=== PATIENT | female | born 2000 | race Caucasian/White ===

== ENCOUNTER 2024-03-24 07:11 | Outpatient (CLI) | payer MEDICAID, SELFPAY ==
--- NOTE | 2024-03-24 07:15 | CRLHL7_ITS ---
For Patients: As a result of the Cures Act, medical imaging exams and procedure reports are released immediately into your electronic medical record. You may view this report before your referring provider. If you have questions, please contact your health care provider. INDICATION: Dating and viability COMPARISON: None. TECHNIQUE: Real-time suh-scale imaging of the pelvis was performed. FINDINGS: Single living intrauterine with heart rate 149 beats per minute. Anterior placenta. Vertex position. Sonographic gestational age 15 weeks 6 days and sonographic due date 09/09/2024. IMPRESSION: Single living intrauterine with sonographic gestational age 15 weeks 6 days and sonographic due date 09/09/2024. Dictated by Osiel Vasquez MD @ 03/25/2024 9:57:11 AM (Electronically Signed)
== END 2024-03-24 07:12 | disposition home or self-care (01) ==
LOC: US 07:12
PROVIDERS: Visit Provider Advanced Practice Midwife
DX: Z34.92 Encounter for supervision of normal pregnancy, unspecified, second trimester (principal); Z3A.15 15 weeks gestation of pregnancy
CPT/HCPCS: 76815; 80306; 86703; 86706; 86803; 86850; 86900; 86901; 87086; 87340; 87491; 87591

== ENCOUNTER 2024-03-24 09:11 | Outpatient (CLI) | payer MEDICAID, SELFPAY | END 2024-03-24 09:12 | disposition home or self-care (01) | LOC: NFLDREF 09:12 | PROVIDERS: Visit Provider Advanced Practice Midwife | DX: Z34.82 Encounter for supervision of other normal pregnancy, second trimester (principal) | CPT/HCPCS: 80306; 86592; 86703; 86704; 86706; 86762; 86787; 86803; 86850; 86900; 86901; 87086; 87340; 87491; 87591 ==

== ENCOUNTER 2024-03-26 10:02 | Outpatient (CLI) | payer MEDICAID, SELFPAY ==
--- NOTE | 2024-03-26 10:15 | CRLHL7_ITS ---
For Patients: As a result of the Century Cures Act, medical imaging exams and procedure reports are released immediately into your electronic medical record. You may view this report before your referring provider. If you have questions, please contact your health care provider. BILATERAL BREAST ULTRASOUND CLINICAL HISTORY: Bilateral breast lumps. COMPARISON: None. TECHNIQUE: Real-time ultrasound imaging of bilateral breast with imaging documentation. FINDINGS: Targeted sonogram performed in the areas of concern bilaterally including 12 o`clock 6 cm from the nipple RIGHT breast and 12 o`clock 6 cm from the nipple LEFT breast. Normal dense fibroglandular tissue is present. No suspicious mass or fibrocystic change. IMPRESSION: Normal dense tissue bilaterally. No suspicious findings. RECOMMENDATIONS: Clinical follow-up. Results and recommendations were discussed with the patient. BI-RADS Category 1: Negative A lay language report of this examination will be provided to the patient. Dictated by Osiel Vasquez MD @ 03/26/2024 1:46:25 PM jj/Dictated by: Osiel Vasquez MD @ 03/26/2024 1:46:00 PM (Electronically Signed)
== END 2024-03-26 10:03 | disposition home or self-care (01) ==
PROVIDERS: Visit Provider Advanced Practice Midwife
DX: N63.10 Unspecified lump in the right breast, unspecified quadrant (principal); N63.20 Unspecified lump in the left breast, unspecified quadrant
CPT/HCPCS: 76642

== ENCOUNTER 2024-04-21 08:03 | Outpatient (CLI) | payer MEDICAID, SELFPAY ==
--- NOTE | 2024-04-21 08:45 | CRLHL7_ITS ---
For Patients: As a result of the Century Cures Act, medical imaging exams and procedure reports are released immediately into your electronic medical record. You may view this report before your referring provider. If you have questions, please contact your health care provider. INDICATION: Evaluate anatomy. COMPARISON: 03/24/2024 TECHNIQUE: Real time suh scale imaging of the fetus was performed as well as color Doppler analysis of the umbilical vessels. FINDINGS: Sonographic imaging demonstrates a single living intrauterine gestation. Fetus demonstrates a regular cardiac rate of 155 beats per minute. Fetus has a breech position. The placenta lies anteriorly without evidence of placenta previa. Edge of the placenta is located 4.1 cm from the internal cervical os. Amniotic fluid volume appears normal. Single deepest vertical pocket: 4.8 cm. The cervix is closed and measures 3.6 cm in length. The composite ultrasound gestational age is calculated at 19 weeks 2 days with an estimated sonographic due date of 09/13/2024. The estimated weight is 295 grams which lies at the 20th %. The following biometric measurements were obtained: Biparietal diameter: 4.2 cm/18 weeks 5 day 8th% Head circumference: 16.7 cm/19 weeks 2 day 16th% Abdominal circumference: 14.3 cm/19 weeks 5 days 33rd% Femur length: 3.0 cm/19 weeks 3 days 21st% The HC/AC ratio measures: 1.16 range (1.09-1.26) On anatomic survey, there is a normal appearance of the cerebral ventricles, cavum septi pellucidi, cisterna magna and cerebellum. The nose, lips, and facial profile appear normal. The cervical, thoracic and lumbar spine are well visualized and appear normal. There is a normal four-chamber heart view and the left and right ventricular outflow tracts appear normal. The diaphragm and stomach appear normal. The bladder is normal. Bilateral renal pelviectasis measuring 6 millimeters on the right and 5 millimeters on the left noted. There is a normal three-vessel cord and there is an eccentric cord insertion site 3.1 cm from the placental edge. The four extremities appear normal. IMPRESSION: Normal OB ultrasound exam with concordance of clinical and sonographic dating. Bilateral renal pelviectasis measuring 6 millimeters on the right and 5 millimeters on the left. Follow-up in the 3rd trimester recommended. Remainder of the anatomic survey normal. Dictated by Osiel Vasquez MD @ 04/23/2024 9:06:14 AM (Electronically Signed)
== END 2024-04-21 08:04 | disposition home or self-care (01) ==
LOC: US 08:05
PROVIDERS: Visit Provider Advanced Practice Midwife
DX: Z34.92 Encounter for supervision of normal pregnancy, unspecified, second trimester (principal); Z3A.19 19 weeks gestation of pregnancy
CPT/HCPCS: 76805

== ENCOUNTER 2024-06-16 10:42 | Outpatient (CLI) | payer MEDICAID, SELFPAY | END 2024-06-16 10:43 | disposition home or self-care (01) | LOC: NFLDREF 10:55 | PROVIDERS: Visit Provider Midwife | DX: Z34.93 Encounter for supervision of normal pregnancy, unspecified, third trimester (principal); Z3A.28 28 weeks gestation of pregnancy | CPT/HCPCS: 80306; 86592 ==

== ENCOUNTER 2024-07-07 10:39 | Outpatient (CLI) | payer MEDICAID, SELFPAY ==
--- NOTE | 2024-07-07 10:15 | CRLHL7_ITS ---
For Patients: As a result of the Cures Act, medical imaging exams and procedure reports are released immediately into your electronic medical record. You may view this report before your referring provider. If you have questions, please contact your health care provider. INDICATION: pyelectasis COMPARISON: 04/21/2024 TECHNIQUE: Real time suh scale imaging of the fetus was performed. FINDINGS: Sonographic imaging demonstrates a single living intrauterine gestation. Fetus demonstrates a regular cardiac rate of 150 beats per minute. Fetus has a vertex position. The placenta lies anteriorly. Amniotic fluid volume appears normal and there is a single deepest vertical pocket: 5.2 cm. The estimated weight is 1597gm which lies at the 24th %. On the prior OB ultrasound exam dated 04/21/2024 the estimated weight was at the 20th%. BPD 29th percentile. HC 54th percentile. AC is 25th percentile. FL 21st percentile. The HC/AC ratio measures 1.13 range (0.96-1.17). Right renal pelvis measures 5.6 millimeters. Left renal pelvis measures 6.7 millimeters. IMPRESSION: Sonographic gestational age 31 weeks 0 days and a sonographic due date 09/08/2024. Good correlation with dates. Normal interval growth. Estimated weight 24th percentile. Abdominal circumference is 25th percentile. Bilateral renal pelviectasis measures 5.6 millimeters on the right and 6.7 millimeters on the left. Dictated by Osiel Vasquez MD @ 07/07/2024 12:30:33 PM (Electronically Signed)
== END 2024-07-07 10:40 | disposition home or self-care (01) ==
LOC: US 10:39
PROVIDERS: Visit Provider Midwife
DX: O99.891 Other specified diseases and conditions complicating pregnancy (principal); N13.30 Unspecified hydronephrosis; Z3A.31 31 weeks gestation of pregnancy
CPT/HCPCS: 76816

== ENCOUNTER 2024-08-25 10:23 | Outpatient (CLI) | payer MEDICAID, SELFPAY ==
[2024-08-25 10:47] VITALS: BP 110/71; PULSE 100; PULSE 97; O2SAT 100
[2024-08-25 11:14] VITALS: PULSE 90; O2SAT 97
[2024-08-25 11:19] VITALS: PULSE 98; O2SAT 97
[2024-08-25 12:32] LABS: Appearance Urine Clear (Clear); Bilirubin Urine Negative (Negative); Blood Urine Negative (Negative); Color Urine Yellow (Yellow); Glucose Urine Negative (Negative); Ketones Urine Negative (Negative); Leukocyte Esterase Urine Negative (Negative); Nitrite Urine Negative (Negative); Protein Urine Negative (Negative); Urobilinogen Urine 0.2 (0.2-1.0); pH Urine 8.5 (5.0-8.5)
[2024-08-25 12:47] LABS: Basophils Percent Auto 0.2 % (0.0-3.0); Eosinophils Percent Auto 0.1 % (0.0-7.0); Hematocrit 30.9 % (33.0-51.0); Hemoglobin* 10.2 gm/dL (12.0-16.0); Immature Granulocytes Pct Auto 0.1 %; Lymphocytes Percent Auto 22.6 % (20-44); Mean Corpuscular HGB Conc 33 gm/dL (32-36); Mean Corpuscular Hemoglobin 28 pg (26-34); Mean Corpuscular Volume 84 fL (80-100); Monocytes Percent Auto 4.4 % (0.0-11.0); Neutrophils Percent Auto 72.6 % (42.0-72.0); Platelet Count* 367 K/uL (140-440); Slide Review Reflex No
[2024-08-25 12:58] LABS: Bacteria Urine Few; RBC Urine 0-2 (0-2); WBC Urine 0-2 (0-5)
[2024-08-25 12:59] LABS: Amphetamine Screen Urine Negative (Negative); Barbiturate Screen Urine Negative (Negative); Benzodiazepines Screen Urine Negative (Negative); Cannabinoid Screen Urine POSITIVE (Negative); Clue Cells No Clue Cells Seen (None Seen); Cocaine Screen Urine Negative (Negative); Methadone Screen Urine Negative (Negative); Methamphetamines Screen Urine Negative (Negative); Opiate Screen Urine Negative (Negative); Oxycodone Screen Urine Negative (Negative); Phencyclidine Screen Urine Negative (Negative); Trichomonas No Trichomonas Seen (None Seen); Tricyclic Antidepressant Urine Negative (Negative); Yeast Yeast Seen (None Seen)
--- NOTE | 2024-08-25 13:37 | PC.OBNST ---
NST Note NST Note Start: 08/25/24 10:50 Freq: ONCE Status: Active Protocol: Document 08/25/24 13:15 POT (Rec: 08/25/24 13:36 POT [id number]) NST Note 2 Para (# of births) 1 EDC 09/08/24 Gestational Age In Weeks & Days 38 Weeks & 0 Days Patient Presented with Complaint(s) of Contractions/cramping,Pain If Pain, describe location low pelvis pressure Reactive Yes RN Nataliia Rodriguez RN Date 08/25/24 Reactive Yes RN Estevan Robert CNM Date 08/25/24 OB NST charge Yes Complete NST Note via Write Note Yes The provider's electronic signature indicates the NST is reactive/appropriate for gestational age. *Note to provider: If an addendum is required, open the patient's chart and click on the note under the Nurse/Allied Health tab.
[2024-08-26 12:11] LABS: Strep B DNA Probe Negative (Negative)
[2024-08-26 12:14] LABS: Strep B Susceptibility Needed? No
== END 2024-08-25 13:30 | disposition home or self-care (01) ==
LOC: OB OUT 10:24 → OB 10:24
PROVIDERS: Visit Provider Advanced Practice Midwife
DX: O47.1 False labor at or after 37 completed weeks of gestation (principal); Z3A.38 38 weeks gestation of pregnancy
CPT/HCPCS: 36415; 59025; 80306; 81001; 85025; 87081; 87086; 87210; 87653; G0463